=== PATIENT | male | born 1975 | race Caucasian/White ===

== ENCOUNTER 2016-08-27 07:51 | Emergency (ER) | payer SELFPAY ==
[~2016-08-27] VITALS: Ht 175.3 cm; Wt 75.0 kg
[2016-08-27 07:54] VITALS: BP 140/77; PULSE 88; TEMP 99.5; O2SAT 96
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
[2016-08-27] MEDS ORDERED: ACETAMINOPHEN/HYDROcodone 325 MG/5 MG TAB PO ONE (08:15)
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
--- NOTE | 2016-08-27 09:16 | PD ---
Physical Exam Time Seen by Provider: :13 Data Data Last Documented VS Vital Signs Date Time Temp Pulse Resp B/P Pulse Ox O2 Delivery O2 Flow Rate FiO2 08/27/16 07:54 99.5 88 140/[address] Brain W/O Iv Contrast(Rout) (08/27/16 ) Ct Cerv Spine W/O Contrast (08/27/16 ) Ct Facial Bones W/O Iv Cont (08/27/16 ) Acetamin-Hydrocod 325-5 Mg ([place] 5-325 (08/27/16 08:15) MDM Medical Record Reviewed: Yes Supervised Visit with YG: No Procedures Procedure Narrative LACERATION LOCATION: Left posterior parietal scalp LENGTH: 2cm NUMBER OF STITCHES/JAY: 2 jay REPAIR: The area of the laceration was prepped with Betadine and sterilely draped. The wound was copiously irrigated and explored without evidence of foreign body, tendon injury or neurovascular injury. The wound was closed using jay This was a single layer repair. The patient was advised to keep the area clean and dry. Patient tolerated the procedure well. LACERATION LOCATION: Left posterior parietal scalp LENGTH: 2cm NUMBER OF STITCHES/JAY: 2 jay REPAIR: The area of the laceration was prepped with Betadine and sterilely draped. The wound was copiously irrigated and explored without evidence of foreign body, tendon injury or neurovascular injury. The wound was closed using jay This was a single layer repair. The patient was advised to keep the area clean and dry. Patient tolerated the procedure well. LACERATION LOCATION:Occipital scalp LENGTH: 2cm NUMBER OF STITCHES/JAY: 2 jay REPAIR: The area of the laceration was prepped with Betadine and sterilely draped. The wound was copiously irrigated and explored without evidence of foreign body, tendon injury or neurovascular injury. The wound was closed using jay. This was a single layer repair. The patient was advised to keep the area clean and dry. Patient tolerated the procedure well. LACERATION LOCATION: Left posterior parietal scalp LENGTH: 3 cm NUMBER OF STITCHES/JAY: 3 jay REPAIR: The area of the laceration was prepped with Betadine and sterilely draped. The wound was copiously irrigated and explored without evidence of foreign body, tendon injury or neurovascular injury. The wound was closed using jay This was a single layer repair. The patient was advised to keep the area clean and dry. Patient tolerated the procedure well. LACERATION LOCATION: Left posterior parietal scalp LENGTH: 4cm NUMBER OF STITCHES/JAY: 4 jay REPAIR: The area of the laceration was prepped with Betadine and sterilely draped. The wound was copiously irrigated and explored without evidence of foreign body, tendon injury or neurovascular injury. The wound was closed using jay. This was a single layer repair. The patient was advised to keep the area clean and dry. Patient tolerated the procedure well. Scripts No Active Prescriptions or Reported Meds Condition: Ana Talbot Aug 27, 2016 09:16
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
[2016-08-27] MEDS ORDERED: HYDR-3516 PO (09:58)
== END 2016-08-27 10:27 | disposition home or self-care (01) ==
LOC: NEPE 07:51
DX: S09.90XA Unspecified injury of head, initial encounter (principal); S01.01XA Laceration without foreign body of scalp, initial encounter; S02.40EA Zygomatic fracture, right side, initial encounter for closed fracture; S02.81XA Fracture of other specified skull and facial bones, right side, initial encounter for closed fracture; J03.90 Acute tonsillitis, unspecified; Y04.8XXA Assault by other bodily force, initial encounter; Z72.0 Tobacco use; Z79.899 Other long term (current) drug therapy
CPT/HCPCS: 70450; 70486; 72125; 99285

== ENCOUNTER 2016-09-12 13:59 | Emergency (ER) | payer SELFPAY ==
[~2016-09-12] VITALS: Ht 172.7 cm; Wt 72.0 kg
[~2016-09-12 13:59] MED LIST: HYDR-3516 PO
[2016-09-12 14:01] VITALS: BP 125/92; PULSE 80; RESP 18; TEMP 97.8; O2SAT 98
--- NOTE | 2016-09-12 14:21 | PD ---
HPI Chief Complaint: Wound/Suture/Staple Re-Check Time Seen by Provider: 14:20 Travel History International Travel<30 days: No Contact w/Intl Traveler<30days: No Traveled to known affect area: No History of Present Illness HPI 41-year-old male presents to emergency department requesting staple removal from his left scalp. Jay in place for approximately 2 weeks. Denies fever , vomiting. Has no other medical complaints. No other modifying factors or associated signs and symptoms. [facility] Social History Alcohol Use: Yes (EVERY OTHER DAY) Tobacco Use: Yes Substance Use: Yes (MARIJUANA AND COCAINE) Allergies-Medications (Allergen,Severity, Reaction): Coded Allergies: No Known Allergies (Unverified , 08/27/16) Reported Meds & Prescriptions Reported Meds & Active Scripts Active Hydrocodone-Acetaminophen 5-325 mg Tab 1 Tab PO Q6H PRN Review of Systems Except as stated in HPI: all other systems reviewed are Neg Physical Exam Narrative GENERAL: Well-nourished, well-developed male patient, in no acute distress SKIN: Warm and dry. Left scalp with wounds that are well approximated and with jay intact; without erythema, edema, drainage. No signs of infection. HEAD: Atraumatic. Normocephalic. EYES: Pupils equal and round. No scleral icterus. No injection or drainage. ENT: Mucosa pink and moist. Airway patent. NECK: Trachea midline. CARDIOVASCULAR: Regular rate. RESPIRATORY: No accessory muscle use. GASTROINTESTINAL: Flat. MUSCULOSKELETAL: No obvious deformities. No clubbing. No cyanosis. No edema. NEUROLOGICAL: Awake and alert. Oriented 3. No obvious cranial nerve deficits. Motor grossly within normal limits. Normal speech. PSYCHIATRIC: Appropriate mood and affect; insight and judgment normal. Data Data Last Documented VS Vital Signs Date Time Temp Pulse Resp B/P Pulse Ox O2 Delivery O2 Flow Rate FiO2 09/12/16 14:01 97.8 80 18 125/92 98 MDM Medical Decision Making Medical Screen Exam Complete: Yes Emergency Medical Condition: Yes Medical Record Reviewed: Yes Differential Diagnosis Staple removal, stage removal, medical clearance Narrative Course 41-year-old male presents for staple removal of left scalp laceration. [place] in place for 2 weeks. No signs of infection. Patient is afebrile nontoxic appearing. Denies fever, vomiting. [place] removed. Instructed patient to follow up with primary care provider. Patient verbalizes understanding and agreement with treatment plan. Patient is medically cleared and stable for discharge. Discussed reasons to return to the emergency department. Patient agrees with treatment plan. The patients vital signs are stable and the patient is stable for outpatient follow-up and treatment. Patient discharged home, stable and in no acute distress. Diagnosis Primary Impression: Removal of jay Referrals: Primary Care Physician Patient Instructions: General Instructions Additional Instructions: Follow-up with primary care provider Return to the emergency department immediately if worsening of symptoms Med/Other Pt SpecificInfo: No Meds Exist/No RX given Disposition: 01 DISCHARGE HOME Condition: Stable Mireille Vera Sep 12, 2016 14:21
== END 2016-09-12 14:34 | disposition home or self-care (01) ==
LOC: NEPK 13:59
DX: Z48.02 Encounter for removal of sutures (principal); Z72.0 Tobacco use
CPT/HCPCS: 99281

== ENCOUNTER 2016-10-07 14:24 | Emergency (ER) | payer SELFPAY ==
[~2016-10-07] VITALS: Ht 175.3 cm; Wt 78.0 kg
[2016-10-07 14:26] VITALS: BP 127/70; PULSE 92; RESP 20; TEMP 98.2; O2SAT 98
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
[2016-10-07] MEDS ORDERED: BACT800T5 PO (15:48)
[2016-10-07] MEDS ORDERED: CEPH-460 PO (15:48)
[2016-10-07] MEDS ORDERED: IBUP800T23 PO (15:48)
--- NOTE | 2016-10-07 15:48 | PD ---
HPI Chief Complaint: Skin Problem Time Seen by Provider: 15:45 Travel History International Travel<30 days: No Contact w/Intl Traveler<30days: No Traveled to known affect area: No History of Present Illness HPI 41-year-old male presents emergency Department with complaint of an abscess to his right thigh times one week and his right forearm 4 days. The one on his thigh has opened up and drained. Reports being up-to-date on his tetanus vaccination. Denies fever, vomiting. Has not taken any medications or tried any treatments to alleviate his symptoms. Symptoms are mild in severity. No known allergies. Has no other medical complaints. No other modifying factors or associated signs and symptoms. PFSH Past Medical History Diminished Hearing: No Social History Alcohol Use: Yes (OCC) Tobacco Use: No Substance Use: Yes (DENIES) Allergies-Medications (Allergen,Severity, Reaction): Coded Allergies: No Known Allergies (Unverified , 08/27/16) Reported Meds & Prescriptions Reported Meds & Active Scripts Active Bactrim DS (Sulfamethoxazole-Trimethoprim) 800-160 Mg Tab 1 Tab PO BID 10 Days Ibuprofen 800 Mg Tab 800 Mg PO Q6HR PRN Keflex (Cephalexin) 500 Mg Cap 500 Mg PO Q6H 10 Days Review of Systems Except as stated in HPI: all other systems reviewed are Neg Physical Exam Narrative GENERAL: Well-nourished, well-developed male patient, in no acute distress; afebrile, nontoxic-appearing SKIN: There is an indurated area to the proximal right forearm at the elbow area which measures about 1 cm in diameter. It is fluctuant and there is pointing but no drainage. There is a zone of inflammation around it but no lymphangitis. There is an opening drained abscess to the anterior right thigh that is draining a minimal amount of purulent drainage; there is a zone of surrounding inflammation but no lymphangitis. HEAD: Atraumatic. Normocephalic. EYES: Pupils equal and round. No scleral icterus. No injection or drainage. ENT: Mucosa pink and moist. Airway patent. NECK: Trachea midline. CARDIOVASCULAR: Regular rate. RESPIRATORY: No accessory muscle use. GASTROINTESTINAL: Flat. MUSCULOSKELETAL: No obvious deformities. No clubbing. No cyanosis. No edema. NEUROLOGICAL: Awake and alert. Oriented 3. No obvious cranial nerve deficits. Motor grossly within normal limits. Normal speech. PSYCHIATRIC: Appropriate mood and affect; insight and judgment normal. Data Data Last Documented VS Vital Signs Date Time Temp Pulse Resp B/P (MAP) Pulse Ox O2 Delivery O2 Flow Rate FiO2 10/07/16 14:26 98.2 92 20 127/70 (89) 98 Room Air Orders Orders Sulfamet-Trimeth Ds 800-160 Mg (Bactrim (10/07/16 16:00) Cephalexin (Keflex) (10/07/16 16:00) Wound Culture And Gram Stain (10/07/16 15:48) MDM Medical Decision Making Medical Screen Exam Complete: Yes Emergency Medical Condition: Yes Medical Record Reviewed: Yes Differential Diagnosis Abscess, folliculitis, cellulitis Narrative Course 41-year-old male with a purulent abscess to the right thigh that is already opened up and drained into the right forearm that has pointing but no drainage and is fluctuant. See procedure note for incision and drainage of abscess to the right forearm. Wound culture pending. Patient is up-to-date on his tetanus vaccination. She is afebrile and nontoxic-appearing. He denies fever, vomiting. Says he can't afford to fill his prescriptions until Wednesday when he gets pain. Bactrim and Keflex administered in the ER. Instructed patient to fill his Bactrim at [facility], as it is free, and then to fill his Keflex on Wednesday when he has paid at [facility]. Keflex and Bactrim prescribed for home. Instructed patient to follow up with primary care provider. Patient verbalizes understanding and agreement with treatment plan. Patient is medically cleared and stable for discharge. Discussed reasons to return to the emergency department. Patient agrees with treatment plan. The patients vital signs are stable and the patient is stable for outpatient follow-up and treatment. Patient discharged home, stable and in no acute distress. Procedures Procedure Narrative INCISION AND DRAINAGE OF ABSCESS: The area was prepped and was sterilely draped. A number 11 scalpel was used to make a less than 0.5cm incision across the area of the abscess. Cultures were obtained. The abscess was drained an irrigated with normal saline. Sterile dressing applied. Diagnosis Primary Impression: Abscess Referrals: [facility] Primary Care Physician Patient Instructions: Abscess (ED), Abscess Follow-up (ED), Abscess Incision and Drainage (DC), General Instructions Departure Forms: Tests/Procedures, Work Release Enter return to work date: Oct 08, 2016 Additional Instructions: Complete full course of antibiotics Warm compresses to the affected area Keep area clean and dry Ibuprofen or Tylenol as directed and as needed for pain and inflammation Follow-up with primary care provider Return to emergency department immediately with worsening of symptoms Med/Other Pt SpecificInfo: Prescription(s) given Scripts Sulfamethoxazole-Trimethoprim (Bactrim DS) 800-160 Mg Tab 1 TAB PO BID for Infection for 10 Days, TAB 0 Refills Prov: Mireille Vera 10/07/16 Ibuprofen (Ibuprofen) 800 Mg Tab 800 MG PO Q6HR Y for PAIN, #30 TAB 0 Refills Prov: Mireille Vera 10/07/16 Cephalexin (Keflex) 500 Mg Cap 500 MG PO Q6H for Infection for 10 Days, CAP 0 Refills Prov: Mireille Vera 10/07/16 Disposition: 01 DISCHARGE HOME Condition: Stable Mireille Vera Oct 07, 2016 15:48
[2016-10-07] MEDS ORDERED: CEPHALEXIN MONOHYDRATE 500 MG CAP PO ONE (16:00)
[2016-10-07] MEDS ORDERED: SULFAMETHOXAZOLE-TRIMETHOPRIM DS 800-160 MG TAB PO ONE (16:00)
== END 2016-10-07 16:14 | disposition home or self-care (01) ==
LOC: NEPK 14:24
DX: L02.415 Cutaneous abscess of right lower limb (principal); B95.62 Methicillin resistant Staphylococcus aureus infection as the cause of diseases classified elsewhere
CPT/HCPCS: 10060; 86403; 87070; 87186; 87205